=== PATIENT | male | born 1995 | race Caucasian/White ===

== ENCOUNTER 2019-08-26 10:35 | Emergency (ER) | payer OTHER ==
[~2019-08-26] VITALS: Ht 167.6 cm; Wt 62.6 kg
[2019-08-26] MEDS ORDERED: ACET325 PO (10:49)
[2019-08-26] MEDS ORDERED: SUBOXONE 8 MG-1 EACH (10:51)
[2019-08-26] MEDS ORDERED: HYDHCL25 (10:51)
[2019-08-26] MEDS ORDERED: CEPH500 PO (11:51)
== END 2019-08-26 12:16 | disposition home or self-care (01) ==
LOC: ER 10:35
DX: L02.414 Cutaneous abscess of left upper limb (principal); F17.200 Nicotine dependence, unspecified, uncomplicated; Z88.0 Allergy status to penicillin
CPT/HCPCS: 10060; 99283-25; A9270-GY